=== PATIENT | female | born 1970 | race African-American/Black ===

== ENCOUNTER 2019-03-18 13:41 | Inpatient (IN) ==
[2019-03-18] MEDS ORDERED: NS 1,000 ML IV ONE ×2 (14:02→15:24)
[2019-03-18 14:08] LABS: URINE SOURCE CLEAN CATCH
[2019-03-18] MEDS ORDERED: ZOSYN 4.5 GM in NS 100 ML IV ONE (14:15)
[2019-03-18] MEDS ORDERED: OFIRMEV 1000 MG/ISOTONIC SOLN 1,000 MG/100 ML BOTTLE IV ONE (14:16)
[2019-03-18 14:17] LABS: COLOR YELLOW; TURBIDITY URINE CLEAR (CLEAR)
[2019-03-18 14:18] LABS: BILIRUBIN URINE NEGATIVE (NEGATIVE); BLOOD URINE NEGATIVE (NEGATIVE); GLUCOSE URINE NEGATIVE (NEGATIVE); KETONE URINE NEGATIVE (NEGATIVE); LEUKOCYTES URINE NEGATIVE (NEGATIVE); NITRITE URINE NEGATIVE (NEGATIVE); PROTEIN URINE NEGATIVE (NEGATIVE); UROBILINOGEN URINE NORMAL (NORMAL)
[2019-03-18 14:19] LABS: UR EPITHELIAL CELLS <10 /HPF (<10); URINE BACTERIA NEGATIVE /HPF; URINE RBC <10 /HPF (<10); URINE WBC <10 /HPF (<10)
--- NOTE | 2019-03-18 14:28 | Diag Imaging Result Doc PS360 ---
EXAM: CHEST-1 VIEW HISTORY: cp TECHNIQUE: Single view COMPARISON: 02/09/2018 FINDINGS: Poor inspiratory effort. Heart is mildly prominent. Questionable small infiltrate in the left lung base. IMPRESSION: Poor inspiratory effort with a questionable small left basilar infiltrate. Follow-up PA and lateral recommended. Electronically signed by Jose David Hernandes 03/18/2019 2:26 PM
[2019-03-18] MEDS ORDERED: VANCOMYCIN 1 GM/NS 1 GM/250 ML IVPB IV ONE (14:32)
[2019-03-18] MEDS ORDERED: ROCEPHIN 1 GM in NS 50 ML IV ONE (14:32)
[2019-03-18 14:34] LABS: BASO% 0.3 % (0.0-0.8); EOS% 1.1 % (0.0-10.0); HEMATOCRIT 32.4 % (37.0-47.0); HEMOGLOBIN 10.8 g/dL (12.0-16.0); IMM GRAN% 0.1 % (0.0-0.5); MCH 28.6 PG (27-31); MCHC 33.3 g/dL (33-37); MCV 85.9 FL (81-99); MONO% 4.3 % (1.7-9.3); NEUT# 11.69 X1000 (1.4-6.5); NEUT% 83.2 % (42.2-75.2); PLT 380 X1000 (130-400); RBC 3.77 XMIL (4.2-5.4); RDW 12.7 % (11.5-14.5); WBC 14.06 X1000 (4.8-10.8)
[2019-03-18 14:35] LABS: BASO# 0.04 X1000 (0.0-0.2); EOS# 0.15 X1000 (0.0-0.7); IMM GRAN# 0.02 X1000 (0.0-0.04); LYMPH# 1.55 X1000 (1.2-3.4); MONO# 0.61 X1000 (0.11-0.59)
[2019-03-18 14:44] LABS: INR 1.02; PROTIME 14.2 Seconds (11.0-16.0)
[2019-03-18 14:45] LABS: PTT 35.4 Seconds (22.3-41.8)
--- NOTE | 2019-03-18 14:46 | PROVIDER DOCUMENTATION ---
HPI-General Adult - General Chief Complaint: General Adult Stated Complaint: CHEST PAIN Time Seen by Provider: 03/18/19 14:00 Source: patient Allergies/Adverse Reactions: Patient Allergies Allergy/AdvReac Type Severity Reaction Status Date / Time ibuprofen Allergy Unknown Verified 02/09/18 21:16 ketorolac tromethamine * Allergy Unknown Verified 02/09/18 21:16 [From Toradol] tramadol Allergy Unknown Verified 02/09/18 21:16 Home Medications: Home Medication List Medication Instructions Recorded Confirmed Last Taken Type Hydrocodone/Acetaminophen [[place] 1 tab PO 05/07/15 03/18/19 09/08/16 20:00 History 10-325 Tablet] 1 TAB Omeprazole [Prilosec] 20 mg PO DAILY 05/07/15 03/18/19 09/12/16 06:00 History Pregabalin [Lyrica] 150 mg PO BID 12/17/15 03/18/19 09/12/16 06:00 History Clonazepam 1 mg PO BID 03/18/19 03/18/19 Unknown History Docusate Sodium [Colace] 100 mg PO DAILY 03/18/19 03/18/19 Unknown History - History of Present Illness -Gen Adult Nature of Presenting Problems: 48 yof presents to ed with c/o rlq and suprapubic pain x 3 days that radiates to right lower back. Denies n,v,c,d. Also reports right ear pain and intermittent substernal chest pain, sharp last for 5-10 minutes. pt has no cardiac hx. Review of Systems - Adult - REVIEW OF SYSTEMS - ADULT Constitutional: reports: chills, fever, [place] Eyes: reports: no symptoms reported Ears, Nose, Mouth & Throat: reports: ear pain (right). denies: sinus problem, throat pain Cardiovascular: reports: see HPI, chest pain. denies: irregular heart rate, orthopnea, syncope Respiratory: denies: cough, wheezing Gastrointestinal: reports: see HPI, abdominal pain. denies: diarrhea, nausea, poor appetite, vomiting Genitourinary: reports: see HPI, flank pain. denies: dysuria, discharge, frequency, frequent UTI's, hematuria, hesitency Musculoskeletal: reports: no symptoms reported Integumentary: reports: no symptoms reported Neurological: reports: no symptoms reported Past History - Adult - PAST MEDICAL HISTORY-ADULT Review of Records: reports: Nursing Assessment Review, Medications Reviewed Major Childhood Illnesses: reports: denies history Cardiovascular: reports: denies history Respiratory: reports: denies history Gastrointestinal: reports: denies history Obstetrical/Gynecological: reports: denies history Genitourinary: reports: denies history Musculoskeletal: reports: cancer Neurological: reports: denies history Endocrine/Immune: reports: denies history Other Conditions: reports: denies history - PRIOR SURGERIES/PROCEDURES Surgical/Procedure History: reports: reviewed, not pertinent - PRIOR HOSPITALIZATIONS Prior Hospitalizations: reports: for other non-related - IMMUNIZATION STATUS Childhood Immunizations: UTD Flu Vaccine: See Nurse Assessment - FAMILY HISTORY Family History: reviewed, not pertinent - SOCIAL HISTORY Smoking: non-smoker Substance Use: none/never Physical Exam-General - PHYSICAL EXAM-ADULT Initial Vital Signs Reviewed: Yes - CONSTITUTIONAL General Appearance: alert, moderate distress, other (febrile on arrival 101.2) - EYES Eyes: PERRL/EOMI, pink conjunctivae - HEAD, EARS, NOSE, MOUTH & THROAT HENMT: moist mucous membranes, TMs normal, pharynx normal, other (bilateral nasal congestion) - NECK Neck: non-tender, full range of motion, supple, normal inspection. negative: lymphadenopathy - RESPIRATORY Respiratory: chest non-tender, lungs clear, normal breath sounds, no pleuratic chest pain, no respiratory distress, no accessory muscle use. negative: accessory muscle use, crackles, rales, rhonchi, stridor, wheezing - CARDIOVASCULAR Cardiovascular: no edema, no gallop, no JVD, no murmur, tachycardia - GASTROINTESTINAL (ABDOMEN) Abdominal Exam: normal bowel sounds, soft, no organomegaly, no pulsatile mass, tenderness (mild RLQ). negative: guarding, rigid, rebound - LYMPHATIC Lymphatic: no adenopathy - MUSCULOSKELETAL Back Exam: CVA tenderness (right) Extremity: normal range of motion, non-tender - SKIN Integumentary: normal color, normal turgor, warm/dry - NEUROLOGIC Neurologic: grossly normal - PSYCHIATRIC Psych/Mental Status: normal mood/affect, normal thought content, normal thought process, oriented x 3 Progress - PLAN OF CARE/RESULTS Progress/Plan/Lab Results: Vital Signs - 8 hr 03/18/19 13:45 03/18/19 14:01 Temperature 101.2 F H Pulse Rate 120 H 119 H Respiratory Rate 20 Blood Pressure 157/83 127/81 O2 Sat by Pulse Oximetry 96 96 Laboratory Results - last 24 hr 03/18/19 03/18/19 13:58 14:07 WBC 14.06 H RBC 3.77 L Hgb 10.8 L Hct 32.4 L MCV 85.9 MCH 28.6 MCHC 33.3 RDW Std Deviation 12.7 Plt Count 380 MPV 10.0 Immature Gran % (Auto) 0.1 Neut % (Auto) 83.2 H Lymph % (Auto) 11.0 L [place] % (Auto) 4.3 Eos % (Auto) 1.1 Baso % (Auto) 0.3 Immature Gran # (Auto) 0.02 Neut # (Auto) 11.69 H Lymph # (Auto) 1.55 [place] # (Auto) 0.61 H Eos # (Auto) 0.15 Baso # (Auto) 0.04 Urine Source CLEAN CATCH Urine Color YELLOW Urine Turbidity CLEAR Urine pH 7.0 Ur Specific [place] 1.010 Urine Protein NEGATIVE Ur Glucose (Stick) NEGATIVE Ur Ketones (Stick) NEGATIVE Urine Blood NEGATIVE Urine Nitrite NEGATIVE Urine Bilirubin NEGATIVE Urobilinogen Dipstick NORMAL Urine Leukocytes NEGATIVE Urine WBC (Auto) <10 Urine RBC (Auto) <10 U Epithel Cells (Auto) <10 Urine Bacteria (Auto) NEGATIVE Orders Category Date Time Status Cardiac Monitoring DIRECTED Care 03/18/19 14:00 Active IV Insertion ORDERED Care 03/18/19 14:00 Active Notify MD of + Sepsis Screen NOW Care 03/18/19 14:00 Active Notify Physician As Ordered Care 03/18/19 14:00 Active CHEST-1 VIEW [RAD] Stat Exams 03/18/19 14:00 Completed BLOOD CULTURE [BLDCUL] Stat Lab 03/18/19 14:31 Received CBC WITH DIFF [HEME] Stat Lab 03/18/19 14:07 Completed CK PROFILE [SP CHEM] Stat Lab 03/18/19 14:07 Received COMPREHENSIVE METABOLIC PANEL [CHEM] Stat Lab 03/18/19 14:07 Received DIRECT STREP Stat Lab 03/18/19 14:28 Uncollected Flu Swab [INFLUENZA SCREEN A/B] Stat Lab 03/18/19 14:27 Uncollected LACTATE, PLASMA [CHEM] Lab 03/18/19 14:18 Received LACTATE, PLASMA [CHEM] Lab 03/18/19 17:00 Uncollected LACTATE, PLASMA [CHEM] Lab 03/18/19 20:00 Uncollected PROTIME WITH INR [COAG] Stat Lab 03/18/19 14:07 Received PTT [COAG] Stat Lab 03/18/19 14:07 Received TROPONIN T Stat Lab 03/18/19 14:07 Received URINALYSIS W/POSS RFLX CULT [URINALYSIS] Stat Lab 03/18/19 13:58 Completed 0.9% Sodium Chloride Inj [Ns] 1,000 ml Med 03/18/19 14:02 Active IV 999 mls/hr Acetaminophen [Ofirmev 1000 mg/Isotonic Soln] Med 03/18/19 14:16 Discontinued 1,000 mg in 100 ml IV ONCE CefTRIAXONE [Rocephin] 1 gm Med 03/18/19 14:32 Active 0.9% Sodium Chloride Inj [Ns] 50 ml IV NOW Piperacillin/Tazobactam [Zosyn] 4.5 gm Med 03/18/19 14:15 Discontinued 0.9% Sodium Chloride Inj [Ns] 100 ml IV NOW Vancomycin 1 gm/Ns Med 03/18/19 14:32 Active 1 gm in 250 ml IV NOW Oxygen Device Stat Oth 03/18/19 14:00 Active Patient meet criteria for sepsis, Fluid and AB ordered, sepsis protocol initiated, Likely from pneumonia. Result Diagrams: 03/18/19 14:07 03/18/19 14:07 - REASSESSMENT Reassessment #1 Time Reassessed: 16:01 Status: improving (feels better, c/o back pain. she is on norco at home, will order 1 dose of norco.) - EKG 1 Time of EKG reading by physician:: 13:47 EKG Read and Signed by:: Ck Krishnan EKG Interpretation (*Must complete 3 of following elements*): Abnormal Rate: 118 Rhythm: sinus tachy [place]: normal QRS: normal ST Wave: non-specific ST changes (nonspecific T wave abnormality) - XRAY 1 XRAY: Bilateral XRAY Study: Chest Impression: Abnormal, See EMR Report (EXAM: CHEST-1 VIEW HISTORY: cp TECHNIQUE: Single view COMPARISON: 02/09/2018 FINDINGS: Poor inspiratory effort. Heart is mildly prominent. Questionable small infiltrate in the left lung base. IMPRESSION: Poor inspiratory effort with a questionable small left basilar infiltrate. Follow-up PA and lateral recommended. Electronically signed by Jose David Hernandes 03/18/2019 2:26 PM 03/18/19 1426 Interpreting Physician: Jose David Hernandes MD Dictated Date/Time: 03/18/19 1425 cc: Ck Krishnan MD; None,PCP) - CT/MRI 1 CT Study: Abdomen (EXAM: CT ABD/PELVIS W/IV CONT ONLY HISTORY: RLQ abdominal pain, rt flank pain TECHNIQUE: CT abdomen and pelvis with intravenous contrast. Oral contrast not ordered. COMPARISON: None. FINDINGS: The gallbladder has been removed. Mild fatty infiltration of the liver. There are scattered splenic granuloma. No splenomegaly. Normal pancreas and adrenal glands. Normal kidneys. No hydronephrosis. Normal aorta. Prominent stool throughout the colon. The appendix is not identified. No ascites. The urinary bladder is distended and appears normal. The uterus has been removed. No pelvic mass. IMPRESSION: 1.Cholecystectomy 2.Constipation 3.Hysterectomy This exam was performed using automated exposure control, adjustment of mA or kV ac cording to patient size, and/or use of iterative reconstruction technique.) - CONSULTS/PCP/HOSPITALIST Notification #1 *Consult/PCP/Hospitalist*: RACHEL Muñoz admitting for Dr. Benjamin Time Discussed: 16:12 Consult Disposition: Admit (Hx, PE and pt care discussed with Toni accepted.) Departure - Departure Date of Disposition Decision: 03/18/19 Time of Disposition Decision: 16:17 DIAGNOSIS: Sepsis Qualifiers: Sepsis type: sepsis due to unspecified organism Qualified Code(s): A41.9 - Sepsis, unspecified organism Pneumonia Qualifiers: Pneumonia type: due to unspecified organism Laterality: left Lung location: upper lobe of lung Qualified Code(s): J18.1 - Lobar pneumonia, unspecified organism Chest pain Qualifiers: Chest pain type: unspecified Qualified Code(s): R07.9 - Chest pain, unspecified Disposition: ADMITTED INPATIENT 09 Certified Medical Emergency: Emergent Condition: Stable Referrals and Follow-Ups: None,PCP [Primary Care Provider] - - Critical Care Note This patient required my direct & personal management of CC.: No Attestation - Physician/ STEVIE Attestation Patient care was provided by Advanced Practice Provider:: No The physician spent face to face time with patient:: Yes Advanced Practice Provider documentation review:: Supervising physician onsite and consulted in the evaluation and care of this patient. The physician did have a face to face encounter with the patient.
[2019-03-18 14:58] LABS: AGAP 12; ALB/GLOB RATIO 1.4; ALBUMIN 4.2 g/dL (3.5-5.0); ALKALINE PHOSPHATASE 107 U/L (32-104); BUN 10 mg/dL (8-22); CHLORIDE 103 mmol/L (98-107); COSMO 277; CREATININE 0.9 mg/dL (0.5-0.9); ESTIMATED GFR > 60; GLUCOSE 136 mg/dL (70-104); GOT 16 U/L (10-30); GPT 19 U/L (10-36); POTASSIUM 3.7 mmol/L (3.5-5.1); SODIUM 138 mmol/L (136-145); TCO2 23 mmol/L (25-35); TOTAL BILIRUBIN 0.34 mg/dL (0.20-1.00); TOTAL PROTEIN 7.2 g/dL (6.3-8.3)
[2019-03-18 15:00] LABS: CK PROFILE 263 U/L (24-173)
[2019-03-18 15:18] LABS: CK INDEX 0.9 (0.0-2.5); CK-MB 2.29 ng/mL (0.0-5.0)
--- NOTE | 2019-03-18 16:03 | Diag Imaging Result Doc PS360 ---
EXAM: CT ABD/PELVIS W/IV CONT ONLY HISTORY: RLQ abdominal pain, rt flank pain TECHNIQUE: CT abdomen and pelvis with intravenous contrast. Oral contrast not ordered. COMPARISON: None. FINDINGS: The gallbladder has been removed. Mild fatty infiltration of the liver. There are scattered splenic granuloma. No splenomegaly. Normal pancreas and adrenal glands. Normal kidneys. No hydronephrosis. Normal aorta. Prominent stool throughout the colon. The appendix is not identified. No ascites. The urinary bladder is distended and appears normal. The uterus has been removed. No pelvic mass. IMPRESSION: 1.Cholecystectomy 2.Constipation 3.Hysterectomy This exam was performed using automated exposure control, adjustment of mA or kV according to patient size, and/or use of iterative reconstruction technique. Electronically signed by Jose David Hernandes 03/18/2019 4:00 PM
[2019-03-18] MEDS ORDERED: NORCO-7.5 PO ONE (16:25)
--- NOTE | 2019-03-18 16:37 | EKG Report ---
Test Performed on : 03/18/2019 1:47:45 PM Test Reason : ED. No order in [place] Blood Pressure : / mmHG Vent. Rate : 118 BPM Atrial Rate : 118 BPM P-R Int : 134 ms QRS Dur : 064 ms QT Int : 318 ms P-R-T Axes : 065 048 012 degrees QTc Int : 445 ms Sinus tachycardia. Nonspecific T wave abnormality Abnormal ECG When compared with ECG of 09-FEB-2018 20:21, Vent. rate has increased BY 53 BPM Unconfirmed Result
[2019-03-18] MEDS: ZITHROMAX PO SCH (18:30)
[2019-03-18] MEDS: NS 1,000 ML IV SCH (18:45)
[2019-03-18] MEDS: LOVENOX SUBQ SCH (18:45)
--- NOTE | 2019-03-18 19:53 | HISTORY AND PHYSICAL ---
CHIEF COMPLAINT: Suprapubic right lower quadrant pain as well as ear pain with substernal chest pain. HISTORY OF PRESENT ILLNESS: This is a 48-year-old female with a reported history of fibroid tumors, seizures, chronic back pain, restless legs syndrome, and migraine headaches as well as bipolar disorder. She presented to the emergency room complaining of right lower quadrant and suprapubic pain that radiates around to her right lower back. She states this has been present intermittently for 3 days. She denied any hematuria, dysuria, frequency. She also states that over the last 24 hours she has had intermittent ear pain as well as some substernal chest pain that lasts about 5 to 10 minutes. She does state that it is associated with cough. She has had chills and generalized body aches over the last 24 hours. PAST MEDICAL HISTORY: 1. Fibroid tumor. 2. Seizure disorder. 3. Rheumatoid arthritis. 4. Restless legs syndrome. 5. Migraines. 6. Bipolar disorder. PAST SURGICAL HISTORY: Hysterectomy, hernia repair, esophageal strictures stretch, tumor removed and bladder tack. SOCIAL HISTORY: She denies alcohol, tobacco, or illicit drug use. ALLERGIES: Tramadol, Toradol and ibuprofen with unknown reactions. HOME MEDICATIONS: A list will be obtained by the nursing staff, and once verified, we will review and restart as appropriate. REVIEW OF SYSTEMS: Discussed with patient with pertinent positives stated in HPI. She denied any syncope or dizziness, any palpitations, any shortness of breath, cough, any nausea, vomiting, diarrhea, constipation, black or bloody vomitus or stools, any hematuria, dysuria, frequency, urgency. PHYSICAL EXAMINATION: GENERAL: This is a 48-year-old female who is sitting up in the bed in no distress. VITAL SIGNS: Blood pressure is 120/90 with a heart rate of 95, respirations are 18, temperature is 101.2 degrees with O2 saturation 98% to 100%. EYES: Pupils equal, round, react to light. EOMs are intact. Sclerae anicteric. HENT: Head is normocephalic, atraumatic. Mucous membranes are moist. NECK: Supple with trachea midline. CARDIOVASCULAR: Regular rate and rhythm. S1 and S2 appreciated. She has no lower extremity edema. Peripheral pulses are palpable x4 extremities. Calves are nontender to palpation. PULMONARY: Breath sounds are clear with no increased work of breathing noted. Chest rises and falls symmetric with respiration. Chest wall is nontender to palpation. GASTROINTESTINAL: Abdomen is soft. She does have some right lower quadrant tenderness. She is nondistended with bowel sounds in all 4 quadrants. GENITOURINARY: She has right CVA tenderness as well as suprapubic tenderness. SKIN: Warm and dry. NEUROLOGIC: She is alert and oriented x3. LABORATORY DATA: WBC is 14 with hemoglobin 10.8, hematocrit 32.4, platelets of 380,000. INR is 1.02. Sodium 138, potassium 3.7, BUN 10, creatinine 0.9 with a glucose of 136. Troponin is negative. Lactate is 2.7. Urinalysis is essentially negative. Blood cultures are pending. Quick strep is negative with throat culture pending. Influenza A and B are negative. ASSESSMENT AND PLAN: 1. Lower lobe pneumonia. Rocephin, Zithromax. Incentive spirometer. 2. Granulomatous changes in the lung. Aware. 3. Abdominal pain - Await CT results 4. RLS - continue home medications 5. Anxiety disorder. Clonazepam. 6. Gastroesophageal reflux disease. Prilosec. 7. Deep vein thrombosis prophylaxis. Lovenox. Identify and continue home medicines Dictated by LATOYA Michaud for Kylee Benjamin MD cc: LATOYA Michaud MD [facility]
[2019-03-18] MEDS: KLONOPIN PO SCH (20:49)
[2019-03-18] MEDS: NORCO-10 PO PRN (20:49)
[2019-03-18] MEDS: LYRICA PO SCH (20:50)
[2019-03-19] MEDS: NORCO-10 PO PRN ×4 (02:30→21:20)
[2019-03-19] MEDS: NS 1,000 ML IV SCH ×2 (05:16→15:34)
[2019-03-19] MEDS: PRILOSEC PO SCH (05:59)
[2019-03-19] MEDS ORDERED: TYLENOL PO PRN (06:10)
[2019-03-19] MEDS ORDERED: ZOFRAN IV PRN (06:10)
[2019-03-19] MEDS: MAXIPIME 1 GM in NS 50 ML IV SCH ×2 (07:53→19:00)
[2019-03-19 08:18] LABS: HEMATOCRIT 31.4 % (37.0-47.0); HEMOGLOBIN 10.3 g/dL (12.0-16.0); MCH 29.3 PG (27-31); MCHC 32.8 g/dL (33-37); MCV 89.2 FL (81-99); MPV 10.1 FL (7.4-10.4); RBC 3.52 XMIL (4.2-5.4); RDW 12.7 % (11.5-14.5); WBC 12.93 X1000 (4.8-10.8)
[2019-03-19 08:36] LABS: AGAP 9; BUN 7 mg/dL (8-22); CALCIUM 8.8 mg/dL (8.8-10.2); CHLORIDE 105 mmol/L (98-107); COSMO 279; CREATININE 0.9 mg/dL (0.5-0.9); ESTIMATED GFR > 60; GLUCOSE 136 mg/dL (70-104); POTASSIUM 3.8 mmol/L (3.5-5.1); SODIUM 140 mmol/L (136-145); TCO2 26 mmol/L (25-35)
[2019-03-19] MEDS: LYRICA PO SCH ×2 (09:13→21:20)
[2019-03-19] MEDS: KLONOPIN PO SCH ×2 (09:14→21:20)
[2019-03-19] MEDS: ZITHROMAX PO SCH (09:14)
[2019-03-19] MEDS: COLACE PO SCH (09:14)
[2019-03-19 09:15] LABS: HEMOGLOBIN A1C 5.2 % (4.8-6.0)
--- NOTE | 2019-03-19 12:24 | Diag Imaging Result Doc PS360 ---
EXAM: CT HEAD W/O CONTRAST 03/19/2019 HISTORY: persistant headache TECHNIQUE: This exam was performed using automated exposure control, adjustment of mA or kV according to patient size, and/or use of iterative reconstruction technique. COMMENT: There is no evidence of mass effect, bleed, or abnormal extra-axial fluid collection. The visualized paranasal sinuses are clear. The calvarium is intact. IMPRESSION: No acute intracranial disease. Electronically signed by Mo Benites 03/19/2019 12:22 PM
--- NOTE | 2019-03-19 12:30 | Diag Imaging Result Doc PS360 ---
EXAM: CT THORAX/NECK W/CONTRAST 03/19/2019 HISTORY: right sided neck swelling/dyspnea TECHNIQUE: This exam was performed using automated exposure control, adjustment of mA or kV according to patient size, and/or use of iterative reconstruction technique. COMMENT: There are no previous studies. NECK: The nasopharynx is unremarkable. The salivary glands are symmetrical in appearance. The epiglottis is not enlarged. There are no abnormal fluid collections. The hypopharynx and larynx are unremarkable in appearance. The thyroid gland is not enlarged. There is no evidence of significant adenopathy. Thorax: There are calcified nodes in the aorticopulmonary window. There are calcified left hilar nodes. The aorta is not distended or dissected. There are no abnormal fluid collections. There has been cholecystectomy. There is atelectasis or fibrosis in the left lower lobe. There is a calcified granuloma in the left upper lobe. There is a noncalcified pulmonary nodule in the left lower lobe on image 53 measuring less than 8 mm in diameter. There is a rounded groundglass opacity in the superior segment of the right lower lobe on image 42. There are granulomata in the spleen. The visualized portion of the skeleton is within normal limits. IMPRESSION: Granulomatous changes. Atelectasis versus fibrosis in the left lower lobe. Nonspecific pulmonary nodule in the left lower lobe and groundglass opacity in the right lower lobe. The latter findings should be followed in six months. Electronically signed by Mo Benites 03/19/2019 12:28 PM
[2019-03-19] MEDS ORDERED: DECADRON IV ONE (14:06)
[2019-03-19] MEDS ORDERED: ROCEPHIN 1 GM in NS 50 ML IV SCH ×2 (15:00→17:00)
[2019-03-19] MEDS: ZYVOX 600 MG/D5W 600 MG/300 ML IVPB IV SCH (15:04)
[2019-03-19] MEDS ORDERED: SORBITOL PO ONE (16:18)
[2019-03-19] MEDS ORDERED: ZITHROMAX 500 MG/NS 500 MG/250 ML IVPB IV SCH (17:30)
[2019-03-19] MEDS: LOVENOX SUBQ SCH (19:01)
[2019-03-19] MEDS: MIRALAX PO SCH (19:02)
[2019-03-19] MEDS: SENOKOT PO SCH (21:20)
--- NOTE | 2019-03-19 22:31 | PROGRESS NOTE ---
DATE: 03/19/2019 SUBJECTIVE: The patient complains of pain on the right side of her neck and extending into the right ear. She also complains of constipation. OBJECTIVE: Vital Signs: Temperature 98.6 degrees, blood pressure 132/78, heart rate 97, respirations 18, O2 saturation is 100% on room air. General: This is an elderly female sitting in bed in no acute distress. Heart: S1, S2 normal. Regular rate and rhythm. Lungs: Equal air entry bilaterally. No crackles, no rales. Abdomen: Positive bowel sounds. Soft, nontender, nondistended. Extremities: No edema. No cyanosis. Neuro: The patient is alert and oriented x4. LABS: White blood cell count 12, hemoglobin 10, hematocrit 31, platelets 358,000, sed rate 37. Sodium 140, potassium 3.8, chloride 105, CO2 26, BUN 7, creatinine 0.9, glucose 136. A1c 5.2. CRP 81. CT of the neck and thorax with contrast revealed granulomatous changes. Atelectasis in the left lower lobe. Nonspecific pulmonary nodule in the left lower lobe. Ground-glass opacity in the right lower lobe. Head CT reveals no acute intracranial disease. ASSESSMENT AND PLAN: 1. Right lower lobe pneumonia. Will continue with antibiotic therapy and bronchodilator therapy. 2. Granulomatous changes in the lung. Aware. 3. Constipation. Will start the patient on scheduled laxative therapy. 4. Neck pain. The CT did not reveal any evidence of abscess or cellulitis. Will continue to monitor closely. The patient may need to be seen by a dentist upon discharge. 5. Anxiety disorder. Continue on clonazepam. 6. Gastroesophageal reflux disease. Continue on Prilosec. 7. Deep vein thrombosis prophylaxis. Continue on Lovenox. cc: Kylee Benjamin MD
[2019-03-20] MEDS: NS 1,000 ML IV SCH ×2 (02:16→14:28)
[2019-03-20] MEDS: ZYVOX 600 MG/D5W 600 MG/300 ML IVPB IV SCH ×2 (02:17→14:47)
[2019-03-20] MEDS: NORCO-10 PO PRN ×4 (04:34→20:31)
[2019-03-20] MEDS: MAXIPIME 1 GM in NS 50 ML IV SCH ×2 (06:17→18:27)
[2019-03-20] MEDS: PRILOSEC PO SCH (06:17)
[2019-03-20 07:38] LABS: RBC 3.45 XMIL (4.2-5.4); WBC 11.39 X1000 (4.8-10.8)
[2019-03-20 07:39] LABS: HEMATOCRIT 30.3 % (37.0-47.0); HEMOGLOBIN 10.2 g/dL (12.0-16.0); MCH 29.6 PG (27-31); MCHC 33.7 g/dL (33-37); MCV 87.8 FL (81-99); MPV 9.9 FL (7.4-10.4); RDW 12.4 % (11.5-14.5)
[2019-03-20 08:11] LABS: AGAP 11; BUN 7 mg/dL (8-22); CALCIUM 9.1 mg/dL (8.8-10.2); CHLORIDE 104 mmol/L (98-107); COSMO 276; CREATININE 0.7 mg/dL (0.5-0.9); ESTIMATED GFR > 60; GLUCOSE 106 mg/dL (70-104); POTASSIUM 3.8 mmol/L (3.5-5.1); SODIUM 139 mmol/L (136-145); TCO2 24 mmol/L (25-35)
[2019-03-20] MEDS: MIRALAX PO SCH (09:27)
[2019-03-20] MEDS: COLACE PO SCH (09:27)
[2019-03-20] MEDS: SENOKOT PO SCH ×2 (09:27→20:31)
[2019-03-20] MEDS: LYRICA PO SCH ×2 (09:31→20:31)
[2019-03-20] MEDS: KLONOPIN PO SCH ×3 (09:32→20:31)
[2019-03-20] MEDS ORDERED: KLONOPIN PO SCH (17:00)
[2019-03-20] MEDS: LOVENOX SUBQ SCH (17:15)
[2019-03-21] MEDS: ZYVOX 600 MG/D5W 600 MG/300 ML IVPB IV SCH ×2 (02:32→15:01)
[2019-03-21] MEDS: NORCO-10 PO PRN ×4 (02:32→21:06)
[2019-03-21] MEDS: MAXIPIME 1 GM in NS 50 ML IV SCH ×2 (05:41→18:18)
[2019-03-21] MEDS: PRILOSEC PO SCH (05:43)
[2019-03-21 06:57] LABS: HEMATOCRIT 32.9 % (37.0-47.0); HEMOGLOBIN 10.9 g/dL (12.0-16.0); MCH 29.1 PG (27-31); MCHC 33.1 g/dL (33-37); MCV 87.7 FL (81-99); MPV 10.6 FL (7.4-10.4); RBC 3.75 XMIL (4.2-5.4); RDW 12.6 % (11.5-14.5); WBC 8.6 X1000 (4.8-10.8)
[2019-03-21 07:13] LABS: AGAP 12; BUN 6 mg/dL (8-22); CALCIUM 9.7 mg/dL (8.8-10.2); CHLORIDE 104 mmol/L (98-107); COSMO 281; CREATININE 0.8 mg/dL (0.5-0.9); ESTIMATED GFR > 60; GLUCOSE 129 mg/dL (70-104); POTASSIUM 3.8 mmol/L (3.5-5.1); SODIUM 141 mmol/L (136-145); TCO2 25 mmol/L (25-35)
--- NOTE | 2019-03-21 08:12 | PROGRESS NOTE ---
DATE: 03/21/2019 SUBJECTIVE: The patient is resting comfortably in bed. She states that she feels a lot better today. She did have a bowel movement last night. OBJECTIVE: Vital Signs: Temperature 98 degrees, blood pressure 125/73, heart rate 67, respirations 18, O2 saturation 98% on room air. General: This is an elderly female lying in bed in no acute distress. Heart: S1, S2 normal. Regular rate and rhythm. Lungs: Equal air entry bilaterally. No crackles. No rales. Abdomen: Positive bowel sounds. Soft, nontender, nondistended. Extremities: No edema. No cyanosis. Neurologic: The patient is alert and oriented x4. LABORATORIES: White blood cell count 11, hemoglobin 10, hematocrit 30, platelets 372,000. Sodium 139, potassium 3.8, chloride 104, CO2 24, BUN 7, creatinine 0.7, glucose 106. ASSESSMENT AND PLAN: 1. Right lower lobe pneumonia, improving. Continue with IV antibiotics and bronchodilator therapy. 2. Anxiety disorder. Continue on clonazepam. 3. Neck pain, improved. 4. Gastrointestinal prophylaxis. Continue on Prilosec. 5. Deep vein thrombosis prophylaxis. Continue on Lovenox. cc: Kylee Benjamin MD
[2019-03-21] MEDS: LYRICA PO SCH ×2 (08:53→21:06)
[2019-03-21] MEDS: KLONOPIN PO SCH ×3 (08:53→21:05)
[2019-03-21] MEDS: COLACE PO SCH (08:54)
[2019-03-21] MEDS: MIRALAX PO SCH (08:54)
[2019-03-21] MEDS: SENOKOT PO SCH ×2 (08:54→21:05)
--- NOTE | 2019-03-21 13:46 | Diag Imaging Result Doc PS360 ---
EXAM: CHEST-2 VIEWS 03/21/2019 HISTORY: pneumonia TECHNIQUE: PA and lateral chest COMMENT: There is improved inspiration compared to 03/18/2019 and the opacification the left base is no longer present. The lungs appear to be clear and the heart and primary vascularity are within normal limits. IMPRESSION: No evidence of acute disease. Electronically signed by Mo Benites 03/21/2019 1:44 PM
--- NOTE | 2019-03-21 14:37 | PROGRESS NOTE ---
DATE: 03/21/2019 SUBJECTIVE: The patient is sitting up in bed resting comfortably. She states that she feels better. OBJECTIVE: Vital Signs: Temperature 98.6 degrees, blood pressure 128/72, heart rate 68, respirations 16, O2 saturations 99% on room air. General: This is an elderly female sitting up in bed in no acute distress. Heart: S1, S2 normal. Regular rate and rhythm. Lungs: Clear to auscultation bilaterally. Abdomen: Positive bowel sounds. Soft, nontender, nondistended. Extremities: No edema. No cyanosis. Neurologic: The patient is alert and oriented x3. LABORATORY DATA: White blood cell count 8.6, hemoglobin 10, hematocrit 32, platelets 359,000. Sodium 141, potassium 3.8, chloride 104, CO2 of 25, BUN 6, creatinine 0.8, glucose 129. ASSESSMENT AND PLAN: 1. Pneumonia. Improving. Continue with antibiotic therapy. 2. Anxiety disorder. Continue on Klonopin. 3. Gastrointestinal prophylaxis. Continue on Prilosec. 4. Deep vein thrombosis prophylaxis. Continue on Lovenox. cc: Kylee Benjamin MD
[2019-03-21] MEDS: LOVENOX SUBQ SCH (18:18)
[2019-03-22] MEDS: ZYVOX 600 MG/D5W 600 MG/300 ML IVPB IV SCH (02:57)
[2019-03-22] MEDS: NORCO-10 PO PRN ×2 (03:00→09:14)
[2019-03-22] MEDS: MAXIPIME 1 GM in NS 50 ML IV SCH (06:10)
[2019-03-22] MEDS: PRILOSEC PO SCH (06:10)
[2019-03-22 07:38] VITALS: BP 138/76
[2019-03-22 07:53] LABS: AGAP 9; BUN 7 mg/dL (8-22); CALCIUM 9.5 mg/dL (8.8-10.2); CHLORIDE 102 mmol/L (98-107); COSMO 275; ESTIMATED GFR > 60; GLUCOSE 119 mg/dL (70-104); SODIUM 138 mmol/L (136-145); TCO2 27 mmol/L (25-35)
[2019-03-22] MEDS: SENOKOT PO SCH (09:14)
[2019-03-22] MEDS: KLONOPIN PO SCH (09:14)
[2019-03-22] MEDS: MIRALAX PO SCH (09:14)
[2019-03-22] MEDS: LYRICA PO SCH (09:14)
[2019-03-22] MEDS: COLACE PO SCH (09:15)
--- NOTE | 2019-04-10 19:58 | DISCHARGE SUMMARY ---
ADMISSION DATE: 03/18/2019 DISCHARGE DATE: 03/22/2019 FINAL DISCHARGE DIAGNOSES: 1. Pneumonia. 2. Anxiety disorder. IMAGIN. CT of the abdomen and pelvis performed on 03/18/2019 that revealed constipation. 2. Portable chest x-ray performed on 03/18/2019 that revealed a small left basilar infiltrate. 3. A head CT performed on 03/19/2019 that revealed no acute intracranial disease. 4. CT of the neck and chest which revealed granulomatous changes as well as a nonspecific pulmonary nodule in the left lower lobe. HOSPITAL COURSE: Miss Walter is a 48-year-old female with a history of anxiety disorder who presented to the ER with shortness of breath and general malaise. On admission a chest x-ray was done that revealed a small basilar infiltrate. The patient was admitted with a diagnosis of pneumonia and started on antibiotic therapy. Cultures were also obtained. A CT of the neck, chest, abdomen, and pelvis was done that revealed granulomatous changes as well as a nonspecific pulmonary nodule in the left lower lobe that measured 8 mm in diameter. The sputum culture ultimately grew out Pseudomonas. The patient improved clinically with antibiotic therapy. The patient was ultimately cleared for discharge on 03/22/2019. The patient was advised to follow up with her primary care physician for a repeat CT scan of her chest in 6 months to check the nodule that was seen on the CT during this hospitalization. DISCHARGE MEDICATIONS: 1. Augmentin 875/125 one tab oral twice a day. 2. Franklin 10/325 one tab oral every 6 hours p.r.n. for pain. 3. Prilosec 20 mg p.o. daily. 4. Lyrica 150 mg oral twice a day. 5. Colace 100 mg p.o. daily. 6. Clonazepam 1 mg oral twice a day. DISCHARGE DIET: Low-sodium low-cholesterol diet. ACTIVITY: As tolerated. FOLLOW-UP INSTRUCTIONS: The patient will need to follow up with her primary care physician in 1 to 2 weeks. The patient will also need to follow up with her primary care physician for a repeat CT scan of the chest within 6 months to further reassess the pulmonary nodule seen on the CT during this hospitalization. cc: Kylee Benjamin MD
== END 2019-03-22 11:18 | disposition home or self-care (01) | DRG 179 ==
LOC: ED 13:41 → 3N 17:17
PROVIDERS: ATTEND Internal Medicine
CPT/HCPCS: 70450; 70491; 71010; 71020; 71045; 71046; 71260; 74177; 80048; 80053; 81001; 82164; 82550; 82553; 83036; 83605; 84145; 84443; 84484; 85025; 85027; 85610; 85651; 85730; 86038; 86039; 86140; 87040; 87070; 87077; 87081; 87186; 87205; 87275; 87276; 87430; 87804; 93005; 94761; 94799; 96361; 96365; 96367; 96375; 99285; A9270; J0131; J0692; J0696; J1100; J1650; J2020; J2543; J3370; J7030; Q9967